=== PATIENT | male | born 1955 | race Caucasian/White ===

== ENCOUNTER 2016-11-12 22:01 | Emergency (ER) | payer OTHER ==
[~2016-11-12] VITALS: Ht 190.5 cm; Wt 104.5 kg
[2016-11-12 22:09] VITALS: BP 164/84; PULSE 53; RESP 16; O2SAT 99
--- NOTE | 2016-11-12 22:26 | ED.REPORT ---
HPI-General Illness Date of Service Nov 12, 2016 ED Provider: Roberth Do MD Pt is a 61 year old male presenting to the ED complaining of severe right keen pain onset earlier today while moving a picnic table. He also complains of swelling tightness down through his foot. The injury did not initially hurt, but a few minutes later he developed severe pain and could not bear weight on it. No other injuries. No other complaints at this time. No numbness or tingling in his foot. Nursing Notes Stated Complaint: RT LEG INJURY Chief Complaint: Extremity Trauma Nursing Notes Reviewed: Yes Allergies: Coded Allergies: No Known Allergies (Unverified , 11/12/16) General Time Seen by MD: 22:25 Chief Complaint Other (Right leg pain) Hx Obtained From: Patient Arrived By: Wheelchair Sudden in Onset?: Yes Onset Occurred: Just prior to arrival Symptom Duration: Since onset Caused by: Accidental Location: : Leg right Quality: Painful Severity: Current: Severe Severity: Maximum: Severe Recent Healthcare: No recent doctor visit, No recent hospitalization Similar Sx Previous: No Past Medical History Past Medical History denies Past Surgical History Right ankle surgery Smoking History Unknown if Ever Smoker Social History Other Social History: Ambulatory Status Independent Review of Systems Full Review of Systems Constitutional: Denies: Fever Respiratory: Denies: Shortness of breath, Wheezing Cardiovascular: Denies: Chest pain GI: Denies: Vomiting Musculoskeletal: Reports: Extremity pain, Extremity swelling Neurologic: Denies: Weakness Complete sys rev & neg: except as marked. Physical Exam Nursing note and vitals reviewed. Constitutional: Well-developed, well-nourished. Not diaphoretic. Head: Normocephalic and atraumatic. Mouth/Throat: Oropharynx is clear and moist. No oropharyngeal exudate. Eyes: EOM are normal. Pupils are equal, round, and reactive to light. Neck: Supple, no tracheal deviation. Cardiovascular: Normal rate, regular rhythm. Equal and intact distal pulses throughout. Pulmonary/Chest: Effort normal and breath sounds normal. No respiratory distress. Abdominal: Soft. No distension. There is no tenderness, rebound, or guarding. Bowel sounds present. Musculoskeletal: Range of motion grossly intact, moving all extremities. Compartments in right leg soft. Good pulses. Tenderness right posterior calf. Neurological: AOx3. Grossly nonfocal exam. Strength and sensation intact and equal to bilateral upper and lower extremities. Skin: Warm and dry, no rashes or pallor appreciated. Psychiatric: Appropriate mood and affect. Behavior appears normal. Vital Signs Vital Signs Date Time Temp Pulse Resp B/P Pulse Ox O2 Delivery O2 Flow Rate FiO2 11/13/16 00:15 37.0 53 16 164/84 99 Room Air 11/12/16 22:09 37.0 53 16 164/84 99 Room Air Initial VS: Reviewed Interpretation & Diagnostics X-Ray Interpretation Xray Interpretation: IMPRESSION: No fracture Dictated by: Marcell Ferrer M.D. on 11/12/2016 at 23:08 X-Ray Ordered: Tibia fibula right Interpretation / Wet Read by: Discussed w radiologist Re-Eval/Medical Decision Med Decision/Clinical Course 61-year-old male presenting to the ED for evaluation of pain to his right keen after having it hit with a table. No other injuries. Neurovascularly intact distal to the injury with no evidence of neurovascular compromise. Good pulses. Compartments soft. X-rays negative for acute fracture. Plan discharge home with careful return precautions, PCP follow-up. Time of Eval: 23:26 Patient Status: Condition improved Re-Evaluation/Progress Note: Discussed plan for discharge. Pt understands and agrees. Consultation : Referral / Consult Name: Marcell Ferrer MD Call Returned at: 23:03 Note: Radiologist. He will look at the x ray. Counseled Regarding: Diagnosis, Lab results, Need for follow-up, When/why to return to ED Discharge & Departure Primary Impression: Keen injury Encounter type: initial encounter Laterality: right Qualified Code: S89.91XA - Unspecified injury of right lower leg, initial encounter Disposition: Home Discharge Condition All VS Reviewed: Yes Condition: Improved Patient Instructions: Abrasion (ED) Additional Instructions: You have been seen in the emergency department for evaluation of pain to your right lower leg. At this time, we do not see a fracture on the x-ray, however I would like you to rest and follow-up with her regular doctor in 1-2 days. Return to the emergency department immediately if he develop any worsening pain , decreased sensation or movement, or if there's anything else of concern to you. Referrals: [facility] Scribe Attestation Portions of this note were transcribed by Lorna Dolan. I, Dr. Do personally performed the history, physical exam and medical decision-making; I reviewed and confirmed the accuracy of the information in the transcribed note. Signed by: Maura Phelps, 11/12/2016 at 2323. copies to: [facility] Roberth Do MD Nov 12, 2016 22:26 LORNA DOLAN Nov 12, 2016 22:50
--- NOTE | 2016-11-12 23:10 | DRSVH ---
PROCEDURE: X-RAY RIGHT TIBIA/FIBULA, TWO VIEWS ([id number]) INDICATIONS: blunt trauma to tib/fib; eval fRACTURE, other abnORMALITIES TECHNIQUE: 2 views of the tibia and fibula were acquired. COMPARISON: None. FINDINGS: Bones: No fractures or dislocations. No suspicious bony lesions. Internal fixation of the distal fi bula and tibiotalar arthrodesis. Plantar and posterior calcaneal spurring. Subtalar joint degeneratio n. Soft tissues: No suspicious soft tissue calcifications or masses. IMPRESSION: No fracture Dictated by: Marcell Ferrer M.D. on 11/12/2016 at 23:08 Approved by: Marcell Ferrer M.D. on 11/12/2016 at 23:09
[2016-11-13 00:15] VITALS: BP 164/84; PULSE 53; RESP 16; O2SAT 99
== END 2016-11-12 23:39 | disposition home or self-care (01) ==
LOC: SED 22:01
DX: S89.81XA Other specified injuries of right lower leg, initial encounter (principal); W22.8XXA Striking against or struck by other objects, initial encounter; Y93.89 Activity, other specified; Y92.89 Other specified places as the place of occurrence of the external cause; Y99.8 Other external cause status; Z98.890 Other specified postprocedural states